=== PATIENT | female | born 1960 | race Two or more races ===

== ENCOUNTER 2024-10-16 12:33 | Emergency (ER) | payer MEDICAID ==
[~2024-10-16] VITALS: Ht 157.5 cm; Wt 59.0 kg
[2024-10-16] MEDS ORDERED: DEXAMETHASONE SOD PHOSPHATE 4 MG INJ ONE (12:50)
[2024-10-16] MEDS ORDERED: KETOROLAC TROMETHAMINE 30 MG INJ ONE (12:50)
[2024-10-16] MEDS: KETOROLAC TROMETHAMINE 30 MG INJ IM ONE (13:09)
[2024-10-16] MEDS: DEXAMETHASONE SOD PHOSPHATE 4 MG INJ IV ONE (13:09)
[2024-10-16 13:10] LABS: BASOPHILS % (AUTO) 0.3 % (0.0-2.0); EOSINOPHILS # (AUTO) 0.1 K/uL (0.0-0.7); EOSINOPHILS % (AUTO) 1.3 % (0.0-7.0); HEMATOCRIT 39.9 % (31.2-41.9); HEMOGLOBIN 13.1 g/dL (10.9-14.3); LYMPHOCYTES # (AUTO) 1.3 K/uL (0.8-4.8); LYMPHOCYTES % (AUTO) 17.4 % (20.5-51.5); MEAN CORPUSCULAR HEMOGLOBIN 29.5 uug (24.7-32.8); MEAN CORPUSCULAR HGB CONC 33 g/dL (32.3-35.6); MEAN CORPUSCULAR VOLUME 89.5 fL (75.5-95.3); MONOCYTES # (AUTO) 0.5 K/uL (0.1-1.30); MONOCYTES % (AUTO) 6.5 % (0.0-11.0); NEUTROPHILS # (AUTO) 5.4 K/uL (1.8-8.9); NEUTROPHILS % (AUTO) 74.5 % (38.5-71.5); PLATELET COUNT (AUTO) 286 K/uL (179-408); RED BLOOD CELL COUNT(AUTO) 4.45 MIL/uL (3.63-4.92); WHITE BLOOD COUNT (AUTO) 7.2 K/uL (3.8-11.8)
[2024-10-16 13:12] LABS: DIFFERENTIAL COMMENT 1
[2024-10-16] MEDS ORDERED: CEFTRIAXONE /D5W 50ML IVPB **ER PYXIS IV ONE (13:12)
[2024-10-16 13:20] LABS: CALCIUM 9.7 mg/dL (8.5-10.1); CARBON DIOXIDE 27 mmol/L (21-32); CHLORIDE 107 mmol/L (98-107); CREATININE 0.9 mg/dL (0.6-1.3); GLUCOSE 117 mg/dL (74-106); POTASSIUM 3.8 mmol/L (3.5-5.1); SODIUM SERUM 145 mmol/L (136-145); UREA NITROGEN, BLOOD 15 mg/dL (7-18)
[2024-10-16] MEDS: CEFTRIAXONE 1 G in IV DEXTROSE 5% 50 ML IV ONE (13:21)
[2024-10-16 13:29] LABS: ALANINE AMINOTRANSFERASE 63 U/L (14-59); ALBUMIN 4.1 g/dL (3.4-5.0); ALKALINE PHOSPHATASE 108 U/L (50-136); ASPARTATE AMINOTRANSFERASE 38 U/L (15-37); BILIRUBIN,DIRECT 0.1 mg/dL (0.0-0.2); BILIRUBIN,TOTAL 0.4 mg/dL (0.2-1.0); TOTAL PROTEIN, SERUM 8.3 g/dL (6.4-8.2)
[2024-10-16] MEDS ORDERED: GABA-532 PO (13:31)
[2024-10-16] MEDS ORDERED: IBUP-1955 PO (13:31)
[2024-10-16] MEDS ORDERED: ANAS1TAB50 PO (13:31)
[2024-10-16] MEDS ORDERED: METF-440 PO (13:31)
[2024-10-16] MEDS ORDERED: LEVO50TA8 PO (13:31)
[2024-10-16 16:15] VITALS: BP 121/67; O2SAT 99
== END 2024-10-16 14:50 | disposition home or self-care (01) ==
LOC: ER 12:33
DX: R55 Syncope and collapse (principal); F43.9 Reaction to severe stress, unspecified; R07.9 Chest pain, unspecified; E03.9 Hypothyroidism, unspecified; E11.9 Type 2 diabetes mellitus without complications; Z79.811 Long term (current) use of aromatase inhibitors; Z79.84 Long term (current) use of oral hypoglycemic drugs; Z79.899 Other long term (current) drug therapy; Z85.3 Personal history of malignant neoplasm of breast
CPT/HCPCS: 99285; 96365; 71045; 96375; 80076; 80048; 85025; 84484; 36415; 93005; J0696; J1100; A4606; A4663; J1885